=== PATIENT | female | born 1995 | race Caucasian/White ===

== ENCOUNTER 2021-01-24 06:48 | Day surgery (SDC) | payer OTHER ==
[2021-01-18 10:27] VITALS: BMI 22.3
[2021-01-24] MEDS ORDERED: ROPIVACAINE HCL 0.5% 30ML VIAL ONE (07:14)
[2021-01-24] MEDS ORDERED: GUM MASTIC/STORAX/MSAL/ALCOHOL 1 DRP DROPSBTL MC ONE (07:45)
[2021-01-24] MEDS ORDERED: PROPOFOL 20 ML ONE ×2 (07:49)
[2021-01-24] MEDS ORDERED: MIDAZOLAM HCL 2 MG/2 ML SINGLE DOSE VIAL ONE (07:49)
[2021-01-24] MEDS ORDERED: SUCCINYLCHOLINE CHLORIDE 200 MG/10 ML SYRINGE ONE (07:50)
[2021-01-24] MEDS ORDERED: ONDANSETRON 4 MG/2 ML VIAL ONE (08:40)
[2021-01-24] MEDS ORDERED: ceFAZolin SODIUM 1 GM VIAL ONE (08:40)
[2021-01-24] MEDS ORDERED: DEXAMETHASONE SOD PHOSPHATE 4 MG/1 ML VIAL ONE (08:40)
[2021-01-24] MEDS ORDERED: KETOROLAC TROMETHAMINE 30 MG/1 ML VIAL ONE (09:29)
[2021-01-24] MEDS ORDERED: oxyCODONE HCL 5 MG TABLET PO PRN (09:53)
[2021-01-24] MEDS ORDERED: ONDANSETRON 4 MG/2 ML VIAL IVPUSH PRN (09:53)
[2021-01-24] MEDS ORDERED: LACTATED RINGERS SOLUTION 1,000 ML IV SCH (10:00)
[2021-01-24 11:12] VITALS: BP 115/74; PULSE 84; TEMP 97.8
== END 2021-01-24 11:13 | disposition home or self-care (01) ==
LOC: FASU 06:48
PROVIDERS: ATTEND Orthopaedic Surgery Hand Surgery
PROC: 0LB60ZZ Excision of Left Lower Arm and Wrist Tendon, Open Approach (ICD-10-PCS; 2021-01-24)
PROC: 0RBP4ZZ Excision of Left Wrist Joint, Percutaneous Endoscopic Approach (ICD-10-PCS; principal; 2021-01-24 09:02)
DX: M25.332 Other instability, left wrist (principal); M25.832 Other specified joint disorders, left wrist; M67.432 Ganglion, left wrist
CPT/HCPCS: 84703; 94760